=== PATIENT | female | born 1940 | race Caucasian/White ===

== ENCOUNTER 2022-03-30 01:11 | Inpatient (IN) | payer MEDICARE, OTHER ==
[~2022-03-30] VITALS: Ht 166 cm; Wt 84.1 kg
--- NOTE | 2022-03-30 00:56 | NUR ---
TRANSFER NOTE PT RECEIVED DIRECT ADMIT FROM [facility]. REPORT FROM DOROTHY CÁRDENAS RN AT [id number]. PT ARRIVES BY EMS GURNEY AND IS SLID TO HOSPITAL BED. PT ORIENTED TO ROOM AND UNIT. CALL LIGHT IN REACH. BED IN LOWEST POSITION. HOSPITALIST CONTACTED REGARDING PT ARRIVAL.
[2022-03-30] MEDS ORDERED: ALLO100 PO (02:13)
[2022-03-30] MEDS ORDERED: ASCO500 PO (02:14)
[2022-03-30] MEDS ORDERED: ASPI81CH PO (02:15)
[2022-03-30] MEDS ORDERED: BASAGLAR K100 UNIT/3 SC (02:16)
[2022-03-30] MEDS ORDERED: Zestril30 MG PO (02:17)
[2022-03-30] MEDS ORDERED: TORS10 PO (02:19)
[2022-03-30] MEDS ORDERED: THERA-D2000 UNIT PO (02:20)
--- NOTE | 2022-03-30 02:22 | NUR ---
RESIDENT MCWILLIAMS TO BEDSIDE TO ASSESS PT.
[2022-03-30] MEDS ORDERED: BASAGLAR K100 UNIT/1 SC (02:48)
[2022-03-30] MEDS ORDERED: CEPH500 PO (02:50)
[2022-03-30] MEDS ORDERED: NIX COMPLET324.86 ML TOP (02:53)
--- NOTE | 2022-03-30 04:32 | NUR ---
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 PT IS A DNR. PLAN TO TREAT WITH IV ABX. ALERT AND ORIENTED TO SELF AND SITUATION. LIMITED HISTORY FROM PATIENT BUT SHE IS PLEASANT. LEGALLY BLIND IN BOTH EYES. PT IS INCONTINENT. SHE LIVES WITH HER NEPHEW IN [place] WHO ASSISTS IN HER CARE. PT NORMALLY AMBULATES WITH A WALKER BUT HAS BEEN TOO WEAK AND PAINFUL.
[2022-03-30 07:29] LABS: BASOPHILS ABSOLUTE AUTO 0.02 K/mm3 (0.00-0.23); BASOPHILS PERCENT AUTO 0 % (0-2); EOSINOPHILS ABSOLUTE AUTO 0.47 K/mm3 (0.00-0.68); EOSINOPHILS PERCENT AUTO 5 % (0-6); Hematocrit 31.1 % (33.0-51.0); Hemoglobin 9.9 g/dL (11.5-16.0); IMMATURE GRAN ABSOLUTE AUTO 0.05 K/mm3 (0.00-0.10); IMMATURE GRAN PERCENT AUTO 1 % (0-1); LYMPHOCYTES ABSOLUTE AUTO 0.98 K/mm3 (0.84-5.20); LYMPHOCYTES PERCENT AUTO 11 % (21-46); MONOCYTES PERCENT AUTO 21 % (4-13); Mean Corpuscular HGB 30.2 pg (26.0-34.0); Mean Corpuscular HGB Conc 31.8 g/dL (31.5-36.5); Mean Corpuscular Volume 95 fL (80-100); Mean Platelet Volume 8.7 fL (9.1-12.4); NEUTROPHILS ABSOLUTE AUTO 5.81 K/mm3 (1.96-9.15); NEUTROPHILS PERCENT AUTO 63 % (41-73); Platelet Count 120 K/mm3 (150-400); RDW Standard Deviation 48.2 fL (35.1-46.3); Red Blood Cell Count 3.28 M/mm3 (3.80-5.20); White Blood Cell Count 9.23 K/mm3 (4.00-11.30)
[2022-03-30 07:52] LABS: Alanine Aminotransfer (ALT/SGP 16 U/L (12-78); Albumin, Blood 2.5 g/dL (3.4-5.0); Albumin/Globulin Ratio 0.7 (0.8-1.8); Alk Phos 83 U/L (50-136); Anion Gap 4 mmol/L (6-16); Aspartate Aminotrans (AST/SGOT 16 U/L (12-37); Bilirubin, Total 0.3 mg/dL (0.1-1.0); Blood Urea Nitrogen 24 mg/dL (8-24); Bun/Creatinine Ratio 21.8 (12.0-20.0); CO2, Blood 28 mmol/L (21-32); Calcium, Blood 8.4 mg/dL (8.5-10.1); Chloride, Blood 110 mmol/L (98-108); Globulin, Blood 3.5 g/dL (2.2-4.0); Glomerular Filtration Rate 47 (60-); Glucose, Blood 173 mg/dL (70-99); Potassium, Blood 3.9 mmol/L (3.5-5.5); Sodium, Blood 142 mmol/L (136-145); Vancomycin, Random 12.7 ug/mL
--- NOTE | 2022-03-31 04:06 | NUR ---
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 PT IS A DNR. ALERT AND ORIENTED X2, VERY PLEASANT. PT IS LEGALLY BLIND IN BOTH EYES. FOLLOWS DIRECTIONS. SHE IS A 2 PERSON ASSIST TO BSC DUE TO WEAKNESS IN THE LEFT LEG. REDNESS IN THE LEFT LOWER EXTREMITY APPEARS IMPROVED SINCE LAST NIGHT. SHE HAD A HARD BOWEL MOVEMENT LAST NIGHT, OTHERWISE SHE IS USUALLY INCONTINENT. SHE LIVES IN [place] WITH HER NEPHEW WHO HELPS TAKE CARE OF HER. CBG WAS 248, GIVEN HER 25 UNITS OF [address].
[2022-03-31 05:21] LABS: Mean Corpuscular HGB 29.9 pg (26.0-34.0); Mean Corpuscular HGB Conc 31.3 g/dL (31.5-36.5); Mean Corpuscular Volume 96 fL (80-100); Mean Platelet Volume 9.1 fL (9.1-12.4); Platelet Count 130 K/mm3 (150-400); RDW Coefficient Variation 14.1 % (11.7-14.2); RDW Standard Deviation 49.1 fL (35.1-46.3); Red Blood Cell Count 3.34 M/mm3 (3.80-5.20); White Blood Cell Count 8.95 K/mm3 (4.00-11.30)
[2022-03-31 05:53] LABS: Bun/Creatinine Ratio 20.8 (12.0-20.0); Calcium, Blood 8.4 mg/dL (8.5-10.1); Creatinine, Blood 1.2 mg/dL (0.40-1.00); Potassium, Blood 3.9 mmol/L (3.5-5.5)
--- NOTE | 2022-03-31 17:52 | NUR ---
SHIFT SUMMARY PT HAS BEEN RESTING IN BED THROUGHOUT THE SHIFT. PT HAS BEEN ABLE TO STAND AND ROTATE FROM BED TO COMMODE W/ ONE PERSON ASSIST. RECEIVED A BED BATH TODAY. MEDICATIONS ADMINISTERED AND GLUCOSE CHECKS PERFORMED PER JAN. PT TOLERATING DIET WELL. PT IS RESTING IN ROOM AT THE TIME OF THIS NOTE.
[2022-04-01 05:06] LABS: BASOPHILS ABSOLUTE AUTO 0.04 K/mm3 (0.00-0.23); BASOPHILS PERCENT AUTO 0 % (0-2); EOSINOPHILS ABSOLUTE AUTO 0.69 K/mm3 (0.00-0.68); EOSINOPHILS PERCENT AUTO 6 % (0-6); Hematocrit 33.9 % (33.0-51.0); Hemoglobin 10.6 g/dL (11.5-16.0); IMMATURE GRAN ABSOLUTE AUTO 0.08 K/mm3 (0.00-0.10); IMMATURE GRAN PERCENT AUTO 1 % (0-1); LYMPHOCYTES ABSOLUTE AUTO 1.19 K/mm3 (0.84-5.20); LYMPHOCYTES PERCENT AUTO 10 % (21-46); MONOCYTES ABSOLUTE AUTO 1.86 K/mm3 (0.16-1.47); MONOCYTES PERCENT AUTO 15 % (4-13); Mean Corpuscular HGB 29.9 pg (26.0-34.0); Mean Corpuscular HGB Conc 31.3 g/dL (31.5-36.5); Mean Corpuscular Volume 96 fL (80-100); Mean Platelet Volume 8.8 fL (9.1-12.4); NEUTROPHILS ABSOLUTE AUTO 8.31 K/mm3 (1.96-9.15); NEUTROPHILS PERCENT AUTO 68 % (41-73); Platelet Count 134 K/mm3 (150-400); RDW Standard Deviation 48.9 fL (35.1-46.3); Red Blood Cell Count 3.55 M/mm3 (3.80-5.20); White Blood Cell Count 12.17 K/mm3 (4.00-11.30)
[2022-04-01 05:34] LABS: Bun/Creatinine Ratio 24.8 (12.0-20.0); Calcium, Blood 8.7 mg/dL (8.5-10.1); Creatinine, Blood 1.05 mg/dL (0.40-1.00); Potassium, Blood 3.8 mmol/L (3.5-5.5)
--- NOTE | 2022-04-01 06:09 | NUR ---
SHIFT SUMMARY: PATIENT IS LEGALLY BLIND. CALM AND COOPERATIVE WITH PLAN OF CARE. ABLE TO AMBULATE 1PA TO BSC. REDNESS TO BLE RETRACTING FROM OUTLINE. NO SIGNIFICANT EVENTS ON NOC.
--- NOTE | 2022-04-01 08:00 | NUR ---
Pt laying in bed, a/ox3, a bit forgetful, blind in bloth eyes, pleasant and cooperative with care, follows commands well, denies pain, lungs are clear t/o, resp even and unlabored, no cough noted, hrr, trace edema noted to left le, ivx3, all sites are clear and patent, btx4, abd round soft nontedner, voids without diff using a bsc, skin has a wound to her left medial ankle, no dressing, sock is stuck to it, after soaking it off, cleansed and placed a mepilex dressing to it, has a black spot on bottom of her foot aprox the size of a quarter, not open, henry, call light in reach, her meal trays will be set up for her.
[2022-04-01 09:48] LABS: Vancomycin, Trough 7.6 ug/mL (5.0-10.0)
[2022-04-01] MEDS ORDERED: Acetaminophen650 M1 PO (14:38)
[2022-04-01] MEDS ORDERED: VISBIOME 112.51 EACH PO (14:40)
[2022-04-01] MEDS ORDERED: HUMALOG KW100 UNIT/1 SC (14:41)
--- NOTE | 2022-04-01 16:49 | NUR ---
Pt has been discharged to home, iv x3 removed intact, is being transported back to [facility]. went over her instructions verbally, she verbalized understanding, and states her nephew will be managing her meds, leaving via wheelchair with transport with all her belongings and discharge instructions. meds faxed to [facility] [place].
== END 2022-04-01 16:54 | disposition home or self-care (01) | DRG 638 ==
LOC: MEDS 01:11
PROVIDERS: Family Medicine; Student in an Organized Health Care Education/Training Program; ADMIT Family Medicine
DX: E11.628 Type 2 diabetes mellitus with other skin complications (principal); L03.116 Cellulitis of left lower limb; E11.22 Type 2 diabetes mellitus with diabetic chronic kidney disease; Z66 Do not resuscitate; M10.9 Gout, unspecified; I10 Essential (primary) hypertension; N18.2 Chronic kidney disease, stage 2 (mild); E11.40 Type 2 diabetes mellitus with diabetic neuropathy, unspecified; E11.319 Type 2 diabetes mellitus with unspecified diabetic retinopathy without macular edema; E11.51 Type 2 diabetes mellitus with diabetic peripheral angiopathy without gangrene; E78.5 Hyperlipidemia, unspecified; H35.30 Unspecified macular degeneration; I05.0 Rheumatic mitral stenosis; B35.1 Tinea unguium; I73.00 Raynaud's syndrome without gangrene; E55.9 Vitamin D deficiency, unspecified; Z79.4 Long term (current) use of insulin; Z95.0 Presence of cardiac pacemaker; Z88.1 Allergy status to other antibiotic agents; Z85.42 Personal history of malignant neoplasm of other parts of uterus; Z90.710 Acquired absence of both cervix and uterus; Z83.3 Family history of diabetes mellitus; Z88.8 Allergy status to other drugs, medicaments and biological substances; Z82.49 Family history of ischemic heart disease and other diseases of the circulatory system
CPT/HCPCS: 36415; 80048; 80053; 80202; 82947; 83036; 85025; 85027; 96365; 96366; 96372; 96375; 96376; 97110; 97116; 97161; 97166; 97530; A9270; G0378; J0696; J1650; J1815; J3370; J7030; J7060